=== PATIENT | female | born 1990 | race Caucasian/White ===

== ENCOUNTER 2017-05-09 18:56 | Inpatient (IN) | payer OTHER ==
[~2017-05-09] VITALS: Ht 152.4 cm; Wt 87.5 kg
--- NOTE | 2017-05-09 20:03 | NUR ---
PT PRESENTS TO ED WITH C/C "NOT FEELING WELL X 1 WEEK". PT STATES THAT SHE HAS BEEN EXPERIENCING FEVER, VOMITNG, DECREASED APPETITE, AND BODY ACHES X 1 WEEK,. PT REPROTS 3 EPISODES OF EMESIS TODAY AND STATES THAT THIS HAS BEEN ONGOIONG SINCE SATURDAY. PT STATES THAT SHE CANNOT HOLD ANY FOOD DOWN AND HAS DECREASED APPETITE. PT REPROTS SHE HAS GENERALIZED BODY ACHES 10/10 AND ACHING IN QUALITY. PT DENIES ANY ABDOMINAL PAIN. PT REPROTS HX SPINA BIFIDA AND IS WHEELCHAIR BOUND. THERE IS REDNESS AND SLIGHT SKIN BREAKDOWN NOTED IN THE SACRAL AREA OF HER BACK. PT REPROTS THAT SHE HAS A VASQUEZ CATHETER IN PLACE AND THAT IT WAS CHANGED 1 WEEK AGO. PT STABLE. AA&OX4. RESP E.U AND SPEAKING IN FULL CLEAR SNTENCES. NAD. WILL CONTINUE TO MONITOR.
[2017-05-09 20:48] LABS: PLATELET COUNT 258 x10^3mcL (130-400)
[2017-05-09 21:01] LABS: RED CELL DISTRIBUTION WIDTH 16.3 % (11.5-14.5)
[2017-05-09 21:03] LABS: ALKALINE PHOSPHATASE 106 U/L (46-116); ALT/SGPT 45 U/L (14-59); AST/SGOT 39 U/L (15-37); BILIRUBIN TOTAL 1.4 mg/dL (0.20-1.00); CALCIUM 9.1 mg/dL (8.5-10.1); CARBON DIOXIDE 27.3 mmol/L (21-32); CHLORIDE SERUM 97 mmol/L (98-107); CREATININE SERUM 0.6 mg/dL (0.6-1.0); GFR1 > 60 mL/min; GLUCOSE SERUM 129 mg/dL (74-106); SODIUM SERUM 134 mmol/L (136-145)
[2017-05-09 21:04] LABS: ALBUMIN 2.9 g/dL (3.4-5.0); TOTAL PROTEIN, SERUM 8.6 g/dL (6.4-8.2)
[2017-05-09 21:05] LABS: POTASSIUM SERUM 2.8 mmol/L (3.5-5.1)
[2017-05-09 21:17] LABS: BAND NEUTROPHIL 2 % (0-10); BASOPHIL 0 % (0-2); MONOCYTE 5 % (0-7); SEGMENTED NEUTROPHILS 84 % (37-75); rbc morphology (normal/abnorm) ABNORMAL (NORMAL)
[2017-05-09 21:39] LABS: microscopic required? YES; urine erythrocyte 1+ (NEGATIVE)
--- NOTE | 2017-05-09 22:23 | NUR ---
CALLED REPORT TO DANIAL CREWS TO ASSUME CARE OF PT.
[2017-05-09 23:36] VITALS: BP 108/57
--- NOTE | 2017-05-09 23:48 | NUR ---
REC'D AOX4, SPEECH CLEAR. DENIES DIZZINES SANDY. ON RA, NO SOB NOTED. IV SITE WNL. ATTACHED TELE 31, NSR. DENIES CHEST PAIN. ARRIVED WITH Julita URIBE. ORIENTED TO ROOM AND SURROUNDINGS. CALL LIGHT WITHIN REACH, PROVIDED REPORT TO JOSHUA BARROW FOR CONTINUITY OF CARE.
[2017-05-09 23:56] LABS: T3 TOTAL 0.63 ng/mL
[2017-05-09 23:57] LABS: PHOSPHOROUS 3.3 mg/dL (2.5-4.9)
--- NOTE | 2017-05-10 | NUR ---
PT SETTLED IN ASSIGNED BED, AAO X4 VERBAL, K-RIDER INFUSING STARTED IN ER FOR LOW POTASSIUM 2.8, IVF NS STARTED INDICATED, PT DENIES PAIN AT THIS TIME, AFEBRILE, REMAINED NPO, CALL LIGHT AT REACH, CONT TO MONITOR.
[2017-05-10 00:05] LABS: FREE T4 1.31 ng/dL (0.76-1.46); FREE THYROXINE INDEX 2.9 ug/dL (1.4-4.5)
--- NOTE | 2017-05-10 03:06 | NUR ---
ASLEEP K-RIDER #2 BAG STILL INFUSING, IV ACCESS RAC PATENT NON INFIL, SR IN THE MONITOR, F/C DRAINING FREELY, CALL LIGHT AT REACH, CHECKED AT INTERVALS
[2017-05-10 06:08] LABS: PLATELET COUNT 227 x10^3mcL (130-400)
[2017-05-10 06:25] LABS: CALCIUM 8.5 mg/dL (8.5-10.1); CARBON DIOXIDE 24.5 mmol/L (21-32); CHLORIDE SERUM 102 mmol/L (98-107); CREATININE SERUM 0.6 mg/dL (0.6-1.0); GFR1 > 60 mL/min; GLUCOSE SERUM 90 mg/dL (74-106); MAGNESIUM 2.1 mg/dL (1.8-2.4); PHOSPHOROUS 1.6 mg/dL (2.5-4.9); POTASSIUM SERUM 3.9 mmol/L (3.5-5.1); SODIUM SERUM 137 mmol/L (136-145)
[2017-05-10 06:33] LABS: RED CELL DISTRIBUTION WIDTH 16.9 % (11.5-14.5)
[2017-05-10 06:38] VITALS: BP 114/61
--- NOTE | 2017-05-10 06:42 | NUR ---
PT AWAKE WITH MONTHLY MENSTRUATION VERY FOUL ODOR, PADS CHANGES KEPT DRY AND CLEAN, NOTED PT WITH OPEN WOUND AND DISCOLORATION TO RT BUTTOCKS, PER PT IT WAS JUST RECENTLY WHEN SHE STARTED TO GET SICK, PT OK'D TO TAKE PICTURE BUT DONT WANT WOUND TO BE TOUCH COZ SHE HAS THE THREAT ANALYST THAT TAKES CARE OF IT, WILL INFORM MD, CONT CURRENT PLAN OF CARE.
--- NOTE | 2017-05-10 07:30 | NUR ---
PATIENT IS IN BED, AWAKE, ALERT AND ORIENTED. IVF AND K-ZENOBIA INFUSING WELL TO RT A/C, SITE PATENT. LUNGS CLEAR ON ROOM AIR. ABD SOFT AND ROUND, BOWEL SOUNDS ACTIVE. LBM YESTERDAY PER PATIENT. VASQUEZ CATH DRAINING RADHA URINE. PATIENT DOES NOT AMBULATE D/T SPINA BIFIDA USES W/C. MOVES UPPER EXTREM WELL. PATIENT NOTED TO HAVE A VERY FOUL ODOR, NOTED WOUND ON INNER RT BUTTOCKS WITH BLACK ESCHAR AND WHITISH MOIST EDGES NOTED. MADELINE. PER PATIENT THIS IS NEW AND ONLY DEVELOPED SINCE SHE HAS BEEN SICK. WOUND CULTURE COLLECTED AND SENT OT THE LAB. PATIENT IS ON ROCEPHIN IV FOR UTI. WILL CONTINUE TO MONITIOR.
--- NOTE | 2017-05-10 08:00 | NUR ---
DR MOORE AND MEDICAL TEAM INTO SEE PATIENT AND DISCUSS PLAN OF CARE.
[2017-05-10 08:45] LABS: BAND NEUTROPHIL 5 % (0-10); BASOPHIL 0 % (0-2); MONOCYTE 7 % (0-7); SEGMENTED NEUTROPHILS 75 % (37-75)
[2017-05-10 08:46] LABS: rbc morphology (normal/abnorm) ABNORMAL (NORMAL)
[2017-05-10 10:00] VITALS: BP 109/62
[2017-05-10 10:16] VITALS: Ht 152.4 cm; Wt 87.5 kg
--- NOTE | 2017-05-10 11:59 | NUR ---
CHAPINCITO AND DEBRIDEMENT SETUP PROVIDED TO DR SINGLETON FOR BEDSIDE DEBRIDEMENT.
--- NOTE | 2017-05-10 12:16 | NUR ---
DR GARCIA AND DR SINGLETON AT BEDSIDE FOR WOUND DEBRIDEMENT AT THIS TIME.
[2017-05-10 13:01] LABS: AMPHETAMINE QUAL UR NONE DETECTED (NEG <=1000)
--- NOTE | 2017-05-10 13:12 | NUR ---
NEW VASQUEZ CATH INSERTED ORDERED WITH RADHA URINE RETURN.
[2017-05-10 15:00] VITALS: BP 104/52
--- NOTE | 2017-05-10 15:21 | NUR ---
PATIENT IS SITTING UP IN BED WITH FAMILY MEMBERS AT BEDSIDE. IVF INFUSING WELL. WOUND CULTURE THAT WAS OBTAINED BY DR SENT TO THE LAB ORDERED. PATIENT DENIES ANY PAIN OR DISCOMFORT. NEW F/C DRAINING RADHA URINE. WILL CONTINUE TO MONITOR.
--- NOTE | 2017-05-10 17:00 | NUR ---
IV SITE INFILTRATED. KYE TO RESTART NEW IV. DR CHISHOLM AT BEDSIDE TO CONSENT PATIENT FOR PICC LINE.
--- NOTE | 2017-05-10 17:24 | NUR ---
IV SITE INFILTRATED, UNABLE TO START NEW IV, FOUR NURSES ATTEMPTED. DR SAMSON NOTIFIED. NEW ORDER TO OBTAIN CONSENT FOR PICC LINE INSERTION. DR CHISHOLM AT BEDSIDE AND CONSENT FOR PICC LINE WAS OBTAINED. WILL CONTINUE TO MONITOR.
--- NOTE | 2017-05-10 18:30 | NUR ---
PICC LINE INSERTION COMPLETE.
--- NOTE | 2017-05-10 20:00 | NUR ---
RECEIVED PT IN BED, ALERT AND ORIENTED. ABLE O VERBALIZE NEEDS. DENIES HEADACHE/DIZZINESS. RESP.EVEN AND UNLABORED. LUNGS SOUNDS CLEAR BILAT. ON ROOM AIR, NO DISTRESS NOTED. ST ON THE MONITOR, DENIES CHEST PAIN OR PRESSURE. AFEBRILE AND VITAL SIGNS STABLE. PICC LINE TO RT ARM, INTACT, DRESSING CLEAN.NOT IN USE AT THIS TIME.AWAITING X-RAY RESULT FOR PLACEMENT. DRESSING TO LT BUTTOCK, DRY AND INTACT. ABLE TO REPOSITION SELF IN BED.WILL PLACE PT ON AIR MATTRESS. VASQUEZ CATH INTACT AND DRAINING STRAW COLORED URINE.CALL LIGHT WITHIN REACH. WILL CONTINUE TO MONITOR.
--- NOTE | 2017-05-10 21:00 | NUR ---
ORDER RECEIVED TO USE PICC LINE FOR IV INFUSION. RESTARTED ON IVF, NS AT 120ML/HR, IVPB INFUSING AT THIS TIME. PT PLACED ON AIR MATTRESS, KEPT COMFORTABLE IN BED. WILL CONTINUE TO MONITOR.
[2017-05-10 21:23] VITALS: BP 104/55
--- NOTE | 2017-05-10 22:12 | NUR ---
INCONT. OF SOFT MED. STOOL. CLEANED AND KEPT COMFORTABLE. WILL CONTINUE TO MONITOR.
--- NOTE | 2017-05-11 01:43 | NUR ---
EYES CLOSED,APPEARS ASLEEP, EASILY AROUSABLE.. RESP. EVEN AND UNLABORED. NO DISTRESS NOTED. WILL CONTINUE TO MONITOR.
[2017-05-11 05:30] VITALS: BP 107/45
--- NOTE | 2017-05-11 06:32 | NUR ---
SLEPT WELL. RESP. EVEN AND UNLABORED. NO DISTRESS NOTED. DUE MEDS GIVEN ORDERED, LAY. WELL. AFEBRILE AND VITAL SIGNS STABLE. IVF INFUSING VIA PICC LINE. VASQUEZ CATH INTACT AND DRAINING RADHA COLOR URINE.ABLE TO TURN AND REPOSITION SELF. DRESSING TO LT BUTTOCK INTACT. KEPT COMFORTABLE.WILL ENDORSE TO INCOMING NURSE.
[2017-05-11 06:48] LABS: BASOPHIL % 0.2 % (0-2); PLATELET COUNT 202 x10^3mcL (130-400)
[2017-05-11 06:51] LABS: ALKALINE PHOSPHATASE 86 U/L (46-116); ALT/SGPT 43 U/L (14-59); AST/SGOT 29 U/L (15-37); BILIRUBIN TOTAL 0.33 mg/dL (0.20-1.00); CALCIUM 8.2 mg/dL (8.5-10.1); CHLORIDE SERUM 104 mmol/L (98-107); CREATININE SERUM 0.5 mg/dL (0.6-1.0); GFR1 > 60 mL/min; GLUCOSE SERUM 86 mg/dL (74-106); MAGNESIUM 1.8 mg/dL (1.8-2.4); PHOSPHOROUS 3.3 mg/dL (2.5-4.9); POTASSIUM SERUM 3.3 mmol/L (3.5-5.1); SODIUM SERUM 138 mmol/L (136-145); TOTAL PROTEIN, SERUM 6.3 g/dL (6.4-8.2)
[2017-05-11 06:53] LABS: ALBUMIN 1.9 g/dL (3.4-5.0)
[2017-05-11 06:55] LABS: BILIRUBIN DIRECT 0.23 mg/dL (0.0-0.2); BILIRUBIN TOTAL 0.33 mg/dL (0.20-1.00); TOTAL PROTEIN, SERUM 6.2 g/dL (6.4-8.2)
[2017-05-11 06:59] LABS: ALBUMIN 1.9 g/dL (3.4-5.0)
[2017-05-11 07:10] LABS: RED CELL DISTRIBUTION WIDTH 17.1 % (11.5-14.5)
--- NOTE | 2017-05-11 07:40 | NUR ---
RECEIVED PT RESTING IN BED. NO ACUTE DISTRESS. BREATHING EVEN AND UNLABORED ON RA. NO SOB NOTED. PICC TO R ARM NOTED. IVF INFUSING. ON AIR MATTRESS. NO PAIN NOTED. BED IN LOWEST POSITION, SIDE RAILS UP X2. CALL LIGHT WITHIN REACH. WILL CONTINUE TO MONITOR.
[2017-05-11 08:30] VITALS: BP 96/60; BP 97/55
[2017-05-11 10:02] VITALS: BP 109/57
--- NOTE | 2017-05-11 12:25 | NUR ---
PT RESTING IN BED. NO ACUTE DISTRESS. C/O MILD ABD SURGICAL SITE DISCOMFORT BUT TOLERABLE. NEW BAND AIDS APPLIED TO ABD. IVF INFUSING. FAMILY AT BEDSIDE. WILL CONTINUE TO MONITOR.
--- NOTE | 2017-05-11 12:26 | NUR ---
PT RESTING IN BED. NO ACUTE DISTRESS. DENIES PAIN. IVF INFUSING. FAMILY AT BEDSIDE. WILL CONTINUE TO MONITOR.
[2017-05-11 13:26] VITALS: BP 109/61
[2017-05-11 17:42] VITALS: BP 115/61
--- NOTE | 2017-05-11 18:46 | NUR ---
DRESSING TO L BUTTOCK CHANGED ORDERED. PT TOLERATED WELL. ALSO HAD BM, CLEANED AND MADE COMFORTABLE. NO ACUTE DISTRESS. IVF INFUSING. BED IN LOWEST POSITION, CALL LIGHT WITHIN REACH. WILL ENDORSE TO INCOMING SHIFT.
--- NOTE | 2017-05-11 19:40 | NUR ---
A&O X 4. LUNG SOUNDS CLEAR AND UNLABORED, ON RA. TELE #31, NSR. RADIAL AND PEDAL PULSES PALPABLE, NO EDEMA NOTED. BOWEL SOUNDS ACTIVE X 4 QUADRANTS. VASQUEZ CATHETER PATENT AND DRAINING YELLOW WITH SOME SEDIMENT. DRESSING TO LEFT BUTTOCK, CDI. IV INFUSING NS @ 120 ML/HR TO RIGHT ARM PICC, NO REDNESS OR SWELLING AND DRESSING CDI. DENIES PAIN AT THIS TIME. BED IN LOW POSITION, CALL LIGHT IN REACH. INSTRUCTED TO CALL FOR ASSISTANCE.
[2017-05-11 21:27] VITALS: BP 99/53
--- NOTE | 2017-05-12 00:30 | NUR ---
RESTING IN BED WITH EYES CLOSED. BREATHING EVEN AND UNLABORED. NO ACUTE DISTRESS NOTED. PICC LINE PATENT AND INFUSING ABX. BED IN LOW POSITION, CALL LIGHT IN REACH, WILL CONTINUE TO MONITOR.
[2017-05-12 06:05] VITALS: BP 96/41
--- NOTE | 2017-05-12 06:31 | NUR ---
RESTING IN BED WITH EYES CLOSED. AWAKENS EASILY TO VERBAL STIMULI. BREATHING EVEN AND UNLABORED ON RA. NO ACUTE DISTRESS NOTED. DR. CASTRO NOTIFIED OF BP: 96/41 MAP: 59 HR: 74, BY PAGEGATE. IV PATENT AND INFUSING. BED IN LOW POSITION, CALL LIGHT IN REACH. WILL ENDORSE TO ONCOMING RN.
--- NOTE | 2017-05-12 06:34 | NUR ---
CHLORHEXADINE BATH DONE. VASQUEZ CARE DONE.
[2017-05-12 07:01] LABS: BASOPHIL % 0.4 % (0-2); PLATELET COUNT 241 x10^3mcL (130-400)
--- NOTE | 2017-05-12 07:20 | NUR ---
RECEIVED PT IN NO ACUTE DISTRESS. RESP EVEN AND UNLABORED ON RA. NO SOB NOTED. DENIES PAIN. DRESSING TO L BUTTOCK C/D/I. IVF INFUSING TO R UPPER ARM PICC. BED IN LOWEST POSITION, SIDE RAILS UP X2. CALL LIGHT WITHIN REACH. WILL CONTINUE TO MONITOR.
[2017-05-12 07:32] LABS: CALCIUM 7.8 mg/dL (8.5-10.1); CARBON DIOXIDE 26.3 mmol/L (21-32); CHLORIDE SERUM 105 mmol/L (98-107); CREATININE SERUM 0.4 mg/dL (0.6-1.0); GFR1 > 60 mL/min; GLUCOSE SERUM 75 mg/dL (74-106); MAGNESIUM 1.7 mg/dL (1.8-2.4); PHOSPHOROUS 4.6 mg/dL (2.5-4.9); POTASSIUM SERUM 3.5 mmol/L (3.5-5.1); SODIUM SERUM 139 mmol/L (136-145)
[2017-05-12 07:36] LABS: RED CELL DISTRIBUTION WIDTH 17.1 % (11.5-14.5)
--- NOTE | 2017-05-12 11:03 | NUR ---
ASSISTED PT WHEELCHAIR AND TO BATHROOM AND BACK TO BED. DRESSING TO LEFT BUTTOCK CHANGED ORDERED. PT TOLERATED WELL. WILL CONTINUE TO MONITOR.
[2017-05-12 11:30] VITALS: BP 92/60
--- NOTE | 2017-05-12 12:16 | NUR ---
PT RESTING IN BED COMFORTABLY, DENIES ANY PAIN AND SHORTNESS OF BREATHE. NO APPARENT DISTRESS. IV FLUIDS INFUSING, BED IN LOWEST POSITION. CALL LIGHT WITHIN REACH, WILL CONTINUE TO MONITOR
--- NOTE | 2017-05-12 17:22 | NUR ---
DR. GRUBBS CAME EARLIER AND SPOKE TO PT REGARDING PROCEDURE. INFORMED CONSENT SIGNED AND PLACED IN CHART. WILL CONTINUE TO MONITOR.
[2017-05-12 18:06] VITALS: BP 104/60
--- NOTE | 2017-05-12 18:24 | NUR ---
PT RESTING IN BED COMFORTABLY, NO COMPLAINTS OF ANY PAIN AT THIS TIME. IV FLUIDS INFUSING. DRESSING TO LFT BUTTOX INTACT. ON AIR MATRESS. CALL WITHIN REACH. VASQUEZ DRAINING YELLOW URINE. WILL ENDORSE ONCOMING SHIFT.
--- NOTE | 2017-05-12 19:30 | NUR ---
A&O X 4. LUNG SOUNDS CLEAR AND UNLABORED, ON RA. TELE #31, NSR. RADIAL AND PEDAL PULSES PALPABLE, NO EDEMA NOTED. BOWEL SOUNDS ACTIVE X 4 QUADRANTS. VASQUEZ CATHETER PATENT AND DRAINING CLEAR YELLOW. DRESSING TO LEFT BUTTOCK REINFORCED. IV INFUSING NS @ 120 ML/HR TO RIGHT ARM PICC, NO REDNESS OR SWELLING AND DRESSING CDI. DENIES PAIN AT THIS TIME. BED IN LOW POSITION, CALL LIGHT IN REACH. INSTRUCTED TO CALL FOR ASSISTANCE.
[2017-05-12 21:18] VITALS: BP 106/54
[2017-05-13 05:32] VITALS: BP 100/50
[2017-05-13 05:41] LABS: BASOPHIL % 0.5 % (0-2); PLATELET COUNT 287 x10^3mcL (130-400)
[2017-05-13 06:05] LABS: CALCIUM 7.8 mg/dL (8.5-10.1); CARBON DIOXIDE 26.9 mmol/L (21-32); CHLORIDE SERUM 105 mmol/L (98-107); CREATININE SERUM 0.5 mg/dL (0.6-1.0); GFR1 > 60 mL/min; GLUCOSE SERUM 88 mg/dL (74-106); MAGNESIUM 2.2 mg/dL (1.8-2.4); PHOSPHOROUS 4.1 mg/dL (2.5-4.9); POTASSIUM SERUM 3.7 mmol/L (3.5-5.1); SODIUM SERUM 138 mmol/L (136-145)
--- NOTE | 2017-05-13 06:36 | NUR ---
RESTING IN BED WITH EYES CLOSED. AWAKENS EASILY TO VERBAL STIMULI. BREATHING EVEN AND UNLABORED, ON RA. NO ACUTE DISTRESS NOTED. NPO SINCE MIDNIGHT. PROCEDURE CHECKLIST COMPLETE. CHLOHEXADINE BATH COMPLETE. VASQUEZ CARE COMPLETE. WILL ENDORSE TO ONCOMING RN.
[2017-05-13 06:48] LABS: RED CELL DISTRIBUTION WIDTH 17.4 % (11.5-14.5)
[2017-05-13 06:49] LABS: rbc morphology (normal/abnorm) ABNORMAL (NORMAL)
--- NOTE | 2017-05-13 09:29 | NUR ---
AT 0715 - RECEIVED PATIENT FROM NIGHT NURSE. PATIENT AWAKE, ALERT AND ORIENTED. IV INFUSING NS AT 150ML/HR VIA EMBER PICC LINE. NPO FOR SCHEDULED SURGERY THIS MORNING. FOLY CATHETER DRAINING YELLOW URINE. AT 0745 - REPORT GIVEN TO OR NURSE. EXPECTED HAND SANDER AT 0830. AT 0800 - SEEN BY DR WILLIAMSON DURING MORNING ROUNDS. MEDICAL TEAM DOCTORS, VISHAL AGUILAR AND MYSELF PRIMARY NURSE ALSO PRESENT. SPOKE WITH PATIENT ABOUT PLAN OF CARE AND ANSWERED HER QUESTION. AT 0905 - PATIENT TAKEN TO OR.
[2017-05-13 10:00] VITALS: BP 100/49
[2017-05-13 13:00] VITALS: BP 114/48
--- NOTE | 2017-05-13 13:07 | NUR ---
AT 1205 - PATIENT BACK IN ROOM FOLLOWING DEBRIDEMENT OF LEFT BUTTOCK WOUND UNDER GENERAL ANAESTHESIA. PATIENT IS AWAKE, ALERT AND ORIENTED. NO C/O PAIN. AT 1210 - CALLED LAB AND BLOOD COLLECTED FOR VANCO TROUGH. IV INFUSION OF NS RESUMED AT 150ML/HR. RECEIVED POST-OP ORDERS. AT 1245 - RECEIVED CALL FROM LAB WITH VANCO TROUGH OF 11.1 CALLED PHARMACY AND SPOKE WITH PHARMACIST. OKAY TO CONTINUE WITH CURRENT DOSE ADMINISTRATION ORDERED. IV CANCO IN PROGRESS. FAMILY AT BEDSIDE. DRESSING TO OPERATION SITE IS DRY AND INTACT. PATIENT EATING LUNCH.
[2017-05-13 17:49] VITALS: BP 101/64
--- NOTE | 2017-05-13 18:35 | NUR ---
RESTING QUIETLY. FAMILY VISITING, VSS AND WNL. DENIES ANY PAIN. DRESSING REMAINS DRY AND INTACT. PATIENT HAS HAD BM THIS PM. IV INFUSION REMAINS AT 120ML/HR NS. GOOD URINE OUTPUT VIA VASQUEZ CATHETER. VASQUEZ CATHETER CARE ATTENDED. PATIENT EATING WELL. WILL ENDORSE CARE TO NIGHT NURSE.
--- NOTE | 2017-05-13 19:54 | NUR ---
PT IS AAOX4. MED/SURG PT. LUNGS SOUNDS ARE CTA ON RA. BOWEL SOUNDS ARE ACTIVE WITH LAST BM 05/13. PT USES W/C AND HAS HER OWN IN ROOM. PT HAS A BUTTOCKS DEBRIDEMENT BANDAGE IN PLACE. PICC LINE IN EMBER RUNNING 120 ML/HR NS. NO ACUTE DISTRESS NOTED, DENIES ANY PAIN AT THIS TIME. CALL LIGHT WITHIN REACH, WILL CONTINUE TO MONITOR.
--- NOTE | 2017-05-13 19:56 | NUR ---
MAGNESIUM 1.7. DR. PERRY MADE AWARE.
[2017-05-13 20:49] VITALS: BP 108/50
--- NOTE | 2017-05-13 22:14 | NUR ---
DRESSING AND IDODOFORM GAUZE HAD BM ON IT. CHANGED IDODOFORM DRESSING AND PLACED ISLAND DRESSING ON TOP. PT TOLERATED WELL.
--- NOTE | 2017-05-13 22:24 | NUR ---
PT REQUESTING ANTI-BM MEDICATION. DR. JAYCEE MILLIGAN.
--- NOTE | 2017-05-13 23:22 | NUR ---
PT PEDRO CAME OUT. PT STATES SHE WOULD RATHER HAVE A FEMALE NURSE PUT IN ANOTHER ONE. CHARGE NURSE FRANKY MILLIGAN.
--- NOTE | 2017-05-14 06:02 | NUR ---
PT IS RESTING COMFORTABLY IN BED. ALL NEEDS HAVE BEEN MET. REMOVED SOME BLOOD FROM PICC FOR LAB. PT TOLERATED WELL. CALL LIGHT WITHIN REACH. NO ACUTE DISTRESS NOTED. WILL ENDORSE TO MORNING SHIFT.
[2017-05-14 06:07] VITALS: BP 102/56
[2017-05-14 06:31] LABS: BASOPHIL % 0.4 % (0-2); PLATELET COUNT 307 x10^3mcL (130-400)
[2017-05-14 06:41] LABS: CARBON DIOXIDE 24.7 mmol/L (21-32); CHLORIDE SERUM 105 mmol/L (98-107); CREATININE SERUM 0.4 mg/dL (0.6-1.0); GFR1 > 60 mL/min; GLUCOSE SERUM 132 mg/dL (74-106); MAGNESIUM 1.9 mg/dL (1.8-2.4); PHOSPHOROUS 2.6 mg/dL (2.5-4.9); POTASSIUM SERUM 3.8 mmol/L (3.5-5.1); SODIUM SERUM 138 mmol/L (136-145)
[2017-05-14 06:45] LABS: RED CELL DISTRIBUTION WIDTH 17.6 % (11.5-14.5)
--- NOTE | 2017-05-14 08:30 | NUR ---
AAO TIMES 4. NO TELE, MED SURG PATIENT. LUNGS CTA. NO SOB. O2 SAT ON RA 97%. BS'S ACTIVE TIMES 4. MICHELLE, BLE WEAKNESS, HISTORY OF SPINA BIFIDA. DRESSING TO LEFT BUTTOCK CDI. IV SITE, PIC LINE TO EMBER PATENT, CDI. PERIPHERAL PULSES PALPABLE. NO EDEMA. COOPERATIVE AND PLEASANT. MEDICAL ROUNDING OCCURED AT [address] LEUNG AND THE MEDICINE TEAM. THE PLAN TODAY IS TO GET HER A POSSIBLE TRANSFER TO ANOTHER FACILITY FOR CLOSURE OF HER WOUND.
--- NOTE | 2017-05-14 10:12 | NUR ---
PT C/O LOOSE STOOLS, REQUSTED IMMODIUM. GAVE IMMODIUM 2 MG CAPSULE AT 1012. NO BM UNTIL 1400, SMALL, LOOSE AND BROWN. PT REQUESTING ANOTHER IMMODIUM, GAVE 2 MG PO AT 1543.
[2017-05-14 10:18] VITALS: BP 102/53
--- NOTE | 2017-05-14 10:19 | NUR ---
AT 0945 PT TURNED OVER FOR CLEANING, AND HER VASQUEZ CATH FELL OUT WITH BALLOON INFLATED AND INTACT. I TOLD DR LEUNG, BECAUSE THE PT HAS A WOUND ON HER BUTTOCKS, I RE-INSERTED THE VASQUEZ CATH. THE VASQUEZ CATH 16 AZER[address]ANI WAS RE INSERTED, THIS TIME, 13 ML OF WATER WAS PUT IN BAL[place]ON. I REMOVED DRESSING TO BUTTOCKS, CLEANED WITH WOUND CLEANSER, RE PACKED WITH 1/2 " IODOFORM PACKING, THEN APPLIED 6" ISLAND DRESSING. PT C/O MICHAEL, I GAVE IMMODIUM 2 MG PO AT 1012.
--- NOTE | 2017-05-14 14:21 | NUR ---
REMOVED OLD DRESSING TO BUTTOCKS. TOOK PHOTO, WOUND IS RED, NO ESCHAR, 8 X 4 X 6 DEEP. CLEANED WITH WOUND CLEANSER. PACKED WITH 1/2" IODOFORM PACKING, APPLIED 6' ISLAND DRESSING.
--- NOTE | 2017-05-14 18:28 | NUR ---
AAO TIMES 4. MED SURG PATIENT, NO TELE. AAO TIMES 4. EATING AND WATCHING TV. NO C/O PAIN AT THIS TIME. IV SITE RAC, PIC LINE PATENT, CDI. VASQUEZ CATH DRAINED 2000 ML URINE TO BSD.
[2017-05-14 18:47] VITALS: BP 109/55
--- NOTE | 2017-05-14 19:37 | NUR ---
AAOX4. NO ACUTE DISTRESS NOTED. LUNGS CTA ON RA. BOWEL SOUNDS ACTIVE, LAST BM 05-14-17. VASQUEZ IN PLACE. PICC IN EMBER INFUSING 120 NS. NO EDEMA NOTED, PULSES PRESENT. BED IN LOWEST POSITION, CALL LIGHT WITHIN REACH. WILL CONTINUE TO MONITOR.
--- NOTE | 2017-05-14 21:10 | NUR ---
PT REFUSED COLACE DUE TO HAVING MULTIPLE BM'S ALREADY.
[2017-05-14 21:45] VITALS: BP 113/40
--- NOTE | 2017-05-14 22:24 | NUR ---
IODOFORM 1/2 INCH AND ISLAND DRESSING CHANGED DUE TO PT HAVING A BM. PT TOLERATED PROCEDURE WELL. WILL CONTINUE TO MONITOR.
--- NOTE | 2017-05-15 05:35 | NUR ---
PT IS RESTING COMFORTABLY. UNLABORED BREATHING WITH NO ACUTE DISTRESS. THE BED IS IN THE LOWEST POSITION AND THE CALL LIGHT IS WITHIN REACH. ALL NEEDS HAVE BEEN MET. WILL ENDORSE TO MORNING SHIFT.
[2017-05-15 06:06] VITALS: BP 103/46
--- NOTE | 2017-05-15 07:20 | NUR ---
RESTING IN BED, AROUSABLE TO LIGHT NOISE, ABLE TO VERBALIZE NEEDS WITH CLEAR SPEECH, LEFT BUTTOCKS COVERED WITH CLEAN AND DRY ISLAND DRESSING, NIGHT RN REPORTS PACKING WITH IODOFORM, PT REPORTS PAIN 3/10, TOLERABLE AT THIS LEVEL, ABLE TO CHANGE POSITION IN BED, USES WHEELCHAIR, HX OF SPINA BIFIDA, PALPABLE PERIPHERAL PULSES, PICC LINE AT RUE INFUSING NS AT 120ML/HR, CALL LIGHT WITHIN REACH, WILL CONTINUE TO PROVIDE CARE.
--- NOTE | 2017-05-15 09:34 | NUR ---
ABLE TO TAKE PO MEDS, IV ABX INFUSION STARTED, PT WOULD LIKE TO BE TRANSFERRED TO A DIFFERENT FACILITY ONCE MEDICALLY CLEARED.
[2017-05-15 10:00] VITALS: BP 107/58
--- NOTE | 2017-05-15 10:45 | NUR ---
DRESSING CHANGED PERFORMED, PT HAD LOOSE BM, OLD DRESSING AND PACKING REMOVED, WOUND CLEANSED WITH WOUND-CLEANSER SPRAY, DRY PACKING PLACED, COVERED WITH ISLAND DRESSING, PT TOLERATED WITHOUT DISTRESS, CALL LIGHT WITHIN REACH.
--- NOTE | 2017-05-15 13:38 | NUR ---
DRESSING CHANGE COMPLETED, PT HAD LOOSE BM, PACKING WITH IODOFORM REMOVED AND NEW PACKING INSERTED, COVERED WITH ISLAND DRESSING, PT TOLERATED WITHOUT DISTRESS.
--- NOTE | 2017-05-15 16:45 | NUR ---
FAM AT BEDSIDE, PT DENIES DISCOMFORT AT THIS TIME, CALL LIGHT WITHIN REACH, WILL CONTINUE TO PROVIDE CARE.
--- NOTE | 2017-05-15 17:19 | NUR ---
DILIP ARREOLA REPORTS PATIENT HAS BEEN ACCEPTED BY [facility] AND A BED HAS BECOME AVAILABLE AT [facility] FOR TONIGHT ROOM 102A, DR GALEANO WILL FOLLOW. DR RIOS SPOKE WITH PATIENT AND UPDATED HER ON THE CURRENT POC, PATIENT VERBALIZED AGREEMENT WITH POC.
--- NOTE | 2017-05-15 18:20 | NUR ---
REPORT GIVEN TO VALORIE BARROW AT [facility] IN [place], , PATIENT WILL BE PICKED UP BY [facility] AT 2000.
--- NOTE | 2017-05-15 18:22 | NUR ---
SITTING UP IN BED, DENIES DISCOMFORT AT THIS TIME, WOUND DRESSING IS CLEAN AND DRY, PICC LINE INFUSING NS AT 120ML/HR, EMODIUM WAS EFFECTIVE, NO OTHER SIGNIFICANT CHANGES NOTED, CARE WILL BE ENDORSED TO NIGHT NURSE.
[2017-05-15 18:27] VITALS: BP 107/58
--- NOTE | 2017-05-15 18:54 | NUR ---
C/O FEELING ANXIOUS ABOUT THE TRANSFER AND NEW HOSPITAL, REASURRED ABOUT BENEFITS OF UPCOMING TREATMENT, WILL ADMIN DOSE OF ATIVAN ORDERED.
[2017-05-15] MEDS ORDERED: NOVAPLUS ZOSYN50 ML IV (19:08)
[2017-05-15] MEDS ORDERED: LAC PO (19:09)
[2017-05-15] MEDS ORDERED: CLINDAMYCI600 MG/50 IV (19:11)
[2017-05-15] MEDS ORDERED: VANCOMYCIN1.5 GM/252 IV (19:15)
--- NOTE | 2017-05-15 19:20 | NUR ---
A&O X 4. LUNG SOUNDS CLEAR AND UNLABORED, ON RA. BOWEL SOUNDS ACTIVE X 4 QUADRANTS. FEOLY DRAINING CLEAR YELLOW URINE. DRESSING TO LEFT BUTTOCK, CDI. PICC LINE TO RUE, PATENT AND INFUSING, NO REDNESS OR SWELLING. PT EXPECTED TO TRANSFER TO [facility] THIS EVENING. BED IN LOW POSITON, CALL LIGHT IN REACH. INSTRUCTED TO CALL FOR ASSISTANCE.
--- NOTE | 2017-05-15 21:30 | NUR ---
PT PICKED UP BY TRANSPORT TO [facility] IN STABLE CONDITION. VASQUEZ AND PICC LINE INTACT.
== END 2017-05-15 21:46 | DRG 951 ==
LOC: ED 18:56 → DU 22:09 → MU 22:09 → DU 23:03 → MU 05-13 07:20
PROVIDERS: Emergency Medicine; Surgery; ADMIT Family Medicine
PROC: 05HB33Z Insertion of Infusion Device into Right Basilic Vein, Percutaneous Approach (ICD-10-PCS; 2017-05-10)
PROC: B54MZZA Ultrasonography of Right Upper Extremity Veins, Guidance (ICD-10-PCS; 2017-05-10)
PROC: 0JB70ZZ Excision of Back Subcutaneous Tissue and Fascia, Open Approach (ICD-10-PCS; 2017-05-10)
PROC: 0QB10ZZ Excision of Sacrum, Open Approach (ICD-10-PCS; principal; 2017-05-13 09:00)
DX: T83.511A Infection and inflammatory reaction due to indwelling urethral catheter, initial encounter (principal); R65.20 Severe sepsis without septic shock; N17.0 Acute kidney failure with tubular necrosis; A41.9 Sepsis, unspecified organism; E43 Unspecified severe protein-calorie malnutrition; L89.154 Pressure ulcer of sacral region, stage 4; N31.8 Other neuromuscular dysfunction of bladder; Q05.7 Lumbar spina bifida without hydrocephalus; N39.0 Urinary tract infection, site not specified; E66.9 Obesity, unspecified; Z68.37 Body mass index [BMI] 37.0-37.9, adult; Z89.422 Acquired absence of other left toe(s); Y84.6 Urinary catheterization as the cause of abnormal reaction of the patient, or of later complication, without mention of misadventure at the time of the procedure; Y92.009 Unspecified place in unspecified non-institutional (private) residence as the place of occurrence of the external cause
CPT/HCPCS: 83880; 84439; C1751; J0696; J1170; J1642; J2001; J2175; J2250; J2405; J2543; J2704; J2765; J3010; J3370; J3475; J3480; J3490; J7030; J7060; J7120; J8597; Q0092

== ENCOUNTER 2019-07-26 20:18 | Emergency (ER) | payer OTHER ==
[~2019-07-26] VITALS: Ht 160 cm; Wt 72.6 kg
[~2019-07-26 20:18] MED LIST: CLINDAMYCI600 MG/50 IV; LAC PO; NOVAPLUS ZOSYN50 ML IV; VANCOMYCIN1.5 GM/252 IV
[2019-07-26 20:29] VITALS: Ht 160 cm; Wt 72.6 kg
[2019-07-26 23:14] LABS: BASOPHIL % 0.2 % (0-2); PLATELET COUNT 362 x10^3mcL (130-400)
[2019-07-26 23:16] LABS: RED CELL DISTRIBUTION WIDTH 16.9 % (11.5-14.5)
[2019-07-26 23:17] LABS: CALCIUM 8.5 mg/dL (8.5-10.1); CARBON DIOXIDE 27.9 mmol/L (21-32); CHLORIDE SERUM 108 mmol/L (98-107); CREATININE SERUM 0.6 mg/dL (0.6-1.0); GFR1 > 60 mL/min; GLUCOSE SERUM 106 mg/dL (74-106); POTASSIUM SERUM 3.2 mmol/L (3.5-5.1); SODIUM SERUM 145 mmol/L (136-145)
[2019-07-27 00:32] VITALS: BP 106/63
== END 2019-07-27 00:32 | disposition home or self-care (01) ==
LOC: ED 20:18
PROVIDERS: Emergency Medicine
DX: L03.115 Cellulitis of right lower limb (principal); Q05.9 Spina bifida, unspecified; Z88.1 Allergy status to other antibiotic agents
CPT/HCPCS: 36415